=== PATIENT | male | born 1975 | race Native Hawaiian/Other Pacific Islander ===

== ENCOUNTER 2018-12-24 16:29 | Inpatient (IN) | payer OTHER, BC ==
[~2018-12-24] VITALS: Ht 177.8 cm; Wt 113.9 kg
[2018-12-24 17:32] LABS: BASO # 0.1 (0.0-0.2); BASO % 0.5 % (0.0-2.0); EOS # 0.1 (0.0-0.7); EOS % 0.6 % (0-4.0); GRAN # 6.5 (1.4-6.5); GRAN % 69.1 % (42.2-75.2); HEMATOCRIT 44.2 % (42.0-52.0); HEMOGLOBIN 15.1 g/dl (13.5-18.0); LYMPH # 1.9 (1.2-3.4); LYMPH % 20.3 % (20.0-51.0); MEAN CELL VOLUME 82 fl (80.0-100.0); MEAN CORPUSCULAR HEMOGLOBIN 28 pg (27.0-31.0); MEAN CORPUSCULAR HGB CONC 34 g/dl (33.0-37.0); MEAN PLATELET VOLUME 8.8 fl (7.4-10.4); MONO # 0.8 (0.1-0.6); MONO % 8.2 % (1.7-9.3); PLATELET COUNT 318 K/mm3 (130-400); RED BLOOD COUNT 5.37 M/mm3 (4.20-5.60); REDCELL DISTRIBUTION WIDTH-CV 12.1 % (11.5-14.5)
[2018-12-24 17:41] LABS: ALBUMIN 4.1 gm/dL (3.5-5.0); BILIRUBIN,TOTAL 0.6 mg/dL (0.0-1.0); CALCIUM 9.6 mg/dL (8.4-10.2); CREATININE, serum 0.98 mg/dL (0.66-1.25); TOTAL PROTEIN 8.6 gm/dL (6.4-8.2)
[2018-12-24 21:49] VITALS: BP 97/55; PULSE 92; TEMP 98.5
[2018-12-25] VITALS (7 sets, daily range): BP systolic 114–138; BP diastolic 46–71; PULSE 76–88; TEMP 98–99.3
--- NOTE | 2018-12-25 05:37 | NUR ---
Pt slept during the night, states that his pain is much better and he is currently only having mild discomfort at the abcess site. VS have remained stable during the night, spouse stayed in room with Pt overnight.
[2018-12-25 06:55] LABS: BASO # 0.1 (0.0-0.2); BASO % 0.5 % (0.0-2.0); EOS % 0.4 % (0-4.0); GRAN # 7.7 (1.4-6.5); GRAN % 74.9 % (42.2-75.2); HEMATOCRIT 39.6 % (42.0-52.0); HEMOGLOBIN 13.3 g/dl (13.5-18.0); LYMPH # 1.6 (1.2-3.4); LYMPH % 15.4 % (20.0-51.0); MEAN CELL VOLUME 84 fl (80.0-100.0); MEAN CORPUSCULAR HEMOGLOBIN 28 pg (27.0-31.0); MEAN CORPUSCULAR HGB CONC 34 g/dl (33.0-37.0); MONO # 0.8 (0.1-0.6); MONO % 8.1 % (1.7-9.3); PLATELET COUNT 326 K/mm3 (130-400); RED BLOOD COUNT 4.74 M/mm3 (4.20-5.60); REDCELL DISTRIBUTION WIDTH-CV 12.4 % (11.5-14.5)
[2018-12-25 07:10] LABS: ALBUMIN 3.6 gm/dL (3.5-5.0); BILIRUBIN,TOTAL 0.6 mg/dL (0.0-1.0); CALCIUM 8.8 mg/dL (8.4-10.2); CREATININE, serum 0.76 mg/dL (0.66-1.25); POTASSIUM 4.1 mmol/L (3.4-5.0); TOTAL PROTEIN 7.4 gm/dL (6.4-8.2)
--- NOTE | 2018-12-25 08:30 | NUR ---
Patient in bed resting. Spouse at bedside. Alert and oriented x 3. Shift assessment complete. Gauze to perirectal abcess removed, bloody drainage present. Repacked abcess site with gauze and ABD over. IV fluids to left AC infusing via pump. Patient denies pain but states mild discomfort to area. Patient will notify nurse when he feels like he needs something for pain. Denies further needs at this time.
--- NOTE | 2018-12-25 09:43 | NUR ---
SW met with patient and about discharge plans. Patient plans to return home upon discharge. Patient lives independently at home with his . His PCP is Dr. Shukla and [facility] Patient does not use any DME or home health services. Patient does not have a DPOA but he is interested in completing one. AJIT provided. AJIT does not anticipate any discharge needs.
--- NOTE | 2018-12-25 12:28 | NUR ---
First visit from the flying shear operator. Bioinformatics Specialist prayed with patient and family. No other needs right now.
[2018-12-25 14:01] LABS: MUCOUS Present /lpf; PH 6 (5-8); SQUAMOUS EPITHELIAL 0-2 /hpf; URINE APPEARANCE Hazy; URINE BACTERIA None Seen /hpf; URINE BILIRUBIN Negative (NEGATIVE); URINE BLOOD Negative (NEGATIVE); URINE COLOR Yellow; URINE GLUCOSE 3+ (NEGATIVE); URINE KETONE 2+ (NEGATIVE); URINE LEUKOCYTE ESTERASE Negative (NEGATIVE); URINE NITRATE Negative (NEGATIVE); URINE PROTEIN(semi-quant) 1+ (NEGATIVE); URINE RBC 0-2 /hpf; URINE UROBILINOGEN >=4.0 mg/dL (NEGATIVE)
--- NOTE | 2018-12-25 14:34 | NUR ---
Contacted Dr. Banegas, will round on patient this soon. Keep NPO for now.
[2018-12-25 14:37] LABS: COLLECTION METHOD CLEAN CATCH
--- NOTE | 2018-12-25 15:32 | NUR ---
Dr. Banegas in to see patient.
--- NOTE | 2018-12-25 18:26 | NUR ---
Patient in bed resting. remains at bedside. Redressed perirectal abcess with gauze and ABD. Previous dressing with red drainage present. Denies pain at this time. Denies further needs at this time. Will report off to microfilm camera operator.
--- NOTE | 2018-12-25 20:00 | NUR ---
PT HAD SOME RELIEF FROM PAIN PILL GIVEN THIS EVENING. BUT STILL HAS C/O PAIN TO PERIRECTAL ABSESS. ABX AND NS INFUSING. NO OTHER CONSERNS VOICED AT THIS TIME.
--- NOTE | 2018-12-25 22:00 | NUR ---
DRESSING HAD SMALL AMOUNT OF BROWN AND SLIGHT RED TINDED DRAINAGE TO GAUZE APPLIED AROUND SITE. PINROSE DRAIN IN PLACE. GAUZE REMOVED, AREA CLEANED AND NEW GAUZE APPLED AND ABD PAD COVERING DRESSING. PT TOLERATED WELL.
--- NOTE | 2018-12-25 23:40 | NUR ---
DRESSSING WAS CHANGED THIS HS TO PERIRECTAL ABSESS THIS HS. PT WAS NEEDING PAIN MED THIS NOC, THIS NURSE ADMINSITERED MED. NO OTHER ISSUES OR CONSERNS VOICED AT THIS TIME.
--- NOTE | 2018-12-26 02:30 | NUR ---
PT STATED THAT HE WAS HAVING INCREASED PAIN TO PERIRECTAL ABSESS AREA. PT REQUESTED PAIN MEDS IF POSSIBLE. THIS NURSE ASKED PT IF HE WANTED TO TRY SOME TYLENOL DUE TO IT BEING TO EARLY FOR NORCO. PT STATED HE'D TRY IT. STATED THAT WHEN HE WAS LAYING SUPINE THAT HE WAS IN MORE PAIN DUE TO THE PRESSURE BEING APPLIED TO AREA, PT STATED THAT LAYING PRONE WAS MORE COMFORTABLE AND WANTED TO LAY THAT WAY DURING THE NOC TO SEE OF PAIN WOULD LESSEN.
[2018-12-26 04:15] VITALS: BP 106/52; PULSE 78; TEMP 98.2
--- NOTE | 2018-12-26 04:15 | NUR ---
THIS NURSE CAME IN TO CHECK VITALS PT WAS RESTING IN BED WITH EYES CLOSED LAYING IN SUPINE POSITION. STATED THAT THE TYLENOL HAD REALLY HELPED "TAKED THE EDGE OFF" AND THAT HE WAS ABLE TO GET SOME REST. THIS NURSE TOLD PT THAT I WOULD BE COMING BACK INTO PT ROOM SOON TO DO DRESSING CHANGE AND START MORE ABX. PT STATED THAT HE WOULD LIKE THE NORCO PILL AT THAT TIME WELL.
--- NOTE | 2018-12-26 04:45 | NUR ---
PTS PERIRECTAL ABSESS DRESSING CHANGED. GAUZE REMOVED AND AREA CLEANED. RED BLOOD AND AND SLIGHT BROWN COLORING NOTED TO GAUZE. APPLIED NEW GAUZE AND COVERED AREA WITH AN ABD PAD. PINROSE DRAIN INTACT. PT TOLERATED WELL.
--- NOTE | 2018-12-26 05:00 | NUR ---
PT WAS RESTING WITH EYES CLOSED WHEN THIS NURSE ENTERED ROOM TO DO DRESSING CHANGE. PT EASILY ARROUSABLE. PT WAS ADMINISTERED PAIN MED PER REQUEST. IV ABX INFUSING ALONG WIHT NS, NO ISSUES NOTED WITH IV. PT HAS BEEN PLEASANT AND COOPERATIVE WITH CARES.
[2018-12-26 08:00] VITALS: BP 125/70; PULSE 73; TEMP 98
[2018-12-26 09:00] LABS: BASO # 0.1 (0.0-0.2); BASO % 0.7 % (0.0-2.0); EOS # 0.1 (0.0-0.7); EOS % 1.9 % (0-4.0); GRAN # 4.4 (1.4-6.5); GRAN % 60.7 % (42.2-75.2); HEMATOCRIT 39.2 % (42.0-52.0); HEMOGLOBIN 13.1 g/dl (13.5-18.0); LYMPH # 1.9 (1.2-3.4); LYMPH % 26.2 % (20.0-51.0); MEAN CELL VOLUME 85 fl (80.0-100.0); MEAN CORPUSCULAR HEMOGLOBIN 29 pg (27.0-31.0); MEAN CORPUSCULAR HGB CONC 33 g/dl (33.0-37.0); MEAN PLATELET VOLUME 8.7 fl (7.4-10.4); MONO # 0.7 (0.1-0.6); MONO % 9.5 % (1.7-9.3); PLATELET COUNT 311 K/mm3 (130-400); REDCELL DISTRIBUTION WIDTH-CV 12.6 % (11.5-14.5)
--- NOTE | 2018-12-26 09:00 | NUR ---
Patient in bed resting, spouse at bedside. Alert and oriented x3. Shift assessment complte. student finance advisor performed dressing change to perirectal site. IV fluids and antibiotics infusing to left AC via pump. States pain 7/10 to perirectal area, medications adiministered per orders by nursing staffing coordinator. Patient waiting for breakfast tray. Denies further needs at this time.
[2018-12-26 09:10] LABS: CALCIUM 8.6 mg/dL (8.4-10.2); CREATININE, serum 0.8 mg/dL (0.66-1.25); POTASSIUM 3.9 mmol/L (3.4-5.0)
--- NOTE | 2018-12-26 10:11 | NUR ---
Initiated secondary IV site. X1 attempt to left wrist. Patient tolerated procedure well
[2018-12-26 13:32] VITALS: BP 126/59; PULSE 75; TEMP 98.3
--- NOTE | 2018-12-26 13:43 | NUR ---
Pt resting in bed with at bedside. Pt is A&Ox3 having complaints of pain in incions site, site reamins clean,dry and intact with sita drain moderate amount of bloody drainage noted with dressing change. Pt receving insulin at breakfast and lunch pt and educated on how to give insulin. Pt has been having pain control with norco and tylenol.
[2018-12-26 16:33] VITALS: BP 132/70; PULSE 81; TEMP 98.4
--- NOTE | 2018-12-26 19:37 | NUR ---
Patient in bed resting. Spouse remains at bedside. States he was able to have a BM this afternoon. IV antibiotics infusing to Left AC per orders. Denies further pain or further needs at this time. reported off to overnight caregiver.
--- NOTE | 2018-12-26 20:00 | NUR ---
Shift assessment complete. at bedside. Romero drain intact, rectal dressing changed (gauze, abd). Patient c/o 4/10 pain in rectal area, prn pain medication given. Will continue to assess.
[2018-12-26 20:37] VITALS: BP 127/64; PULSE 77; TEMP 98.4
[2018-12-26 23:15] VITALS: BP 122/62; PULSE 66; TEMP 98.2
--- NOTE | 2018-12-27 02:00 | NUR ---
Patient in bed, son at bedside. Gauze changed on perirectal abcess site per pt request. Patient denies pain, but would like prn motrin to "get ahead of the pain." Prn motrin given with crackers, will reassess.
[2018-12-27 04:13] VITALS: BP 139/75; PULSE 68; TEMP 97.8
[2018-12-27 07:13] LABS: BASO % 0.6 % (0.0-2.0); EOS # 0.2 (0.0-0.7); GRAN # 4.3 (1.4-6.5); GRAN % 61.6 % (42.2-75.2); HEMATOCRIT 38.2 % (42.0-52.0); HEMOGLOBIN 12.5 g/dl (13.5-18.0); LYMPH # 1.7 (1.2-3.4); MEAN CELL VOLUME 86 fl (80.0-100.0); MEAN CORPUSCULAR HEMOGLOBIN 28 pg (27.0-31.0); MEAN CORPUSCULAR HGB CONC 33 g/dl (33.0-37.0); MEAN PLATELET VOLUME 8.5 fl (7.4-10.4); MONO # 0.7 (0.1-0.6); MONO % 9.5 % (1.7-9.3); PLATELET COUNT 292 K/mm3 (130-400); RED BLOOD COUNT 4.45 M/mm3 (4.20-5.60); REDCELL DISTRIBUTION WIDTH-CV 12.8 % (11.5-14.5)
[2018-12-27 07:26] LABS: CALCIUM 8.5 mg/dL (8.4-10.2); CREATININE, serum 1.08 mg/dL (0.66-1.25); POTASSIUM 4.1 mmol/L (3.4-5.0)
[2018-12-27 07:39] VITALS: BP 153/81; PULSE 81; TEMP 97.2
--- NOTE | 2018-12-27 08:40 | NUR ---
Patient in bed resting. at bedside. Alert and oriented x 3. Shift assessment complete. Perirectal abcess with gauze and abd pad changed by student nurse, sita drain intact. IV fluids infusing via pump to left AC. Denies pain at this time. Denies further needs at this time.
--- NOTE | 2018-12-27 10:27 | NUR ---
Pt is resting in bed with family at bedside. No complaints of SOA breathing unlabored. IV infusing at 125mL/hr of normal saline IV site remains clean,dry and intact no redness or swelling. Pt ordering breakfast and had a blood glucose of 217. Pt had a BM this morning and took out dressing due to them being soild dressing replaced with some gauze and abd pad sita drain remains in place with no redness or swelling around site. Pt wanting to do a wipe down. Call light within reach, bed in lowest postion 2/4 siderails up and pt perfers his own slippers to hospital non-skid socks.
[2018-12-27 12:26] VITALS: BP 147/72; PULSE 77; TEMP 97.9
--- NOTE | 2018-12-27 12:43 | NUR ---
Patient up ambulating in [place] with spouse, steady gait
--- NOTE | 2018-12-27 13:15 | NUR ---
Dressing changed before patinet walking the [place] with . Small amount of serosanguinous drainage sita drain intact with sutures. Dressing changed with two 4x4 and abd pad over. Tolerating walking the halls well.
[2018-12-27] MEDS ORDERED: FREESTYLE PREC1 EAC5 MC (14:10)
[2018-12-27] MEDS ORDERED: GLUCOSE TEST ST1 DEV MC (14:10)
[2018-12-27] MEDS ORDERED: GLUCOPHAGE850 MG/TAB PO (14:10)
[2018-12-27] MEDS ORDERED: LANCETS MC (14:10)
--- NOTE | 2018-12-27 15:41 | NUR ---
Discharge education provided, Patient and spouse educated on dressing changes. Provided gauze and ABD to take home. Educated on signs and symptoms of infection and when to call providers. Patient educated on how to check blood sugar, patient demonstrated back ability to perform accucheck. Patient verbalized understanding of discharge instructions. States pain 4/10 to perirectal area would like to take motrin before leaving. Gave medications per orders. Denies further needs. Ambulated out with surgical staff and spouse.
== END 2018-12-27 15:45 | disposition home or self-care (01) | DRG 264 ==
LOC: COL.ER 16:29 → SURG 18:43
PROVIDERS: Emergency Medicine; Nurse Practitioner; Physician Assistant; ADMIT Surgery
PROC: 0J9930Z Drainage of Buttock Subcutaneous Tissue and Fascia with Drainage Device, Percutaneous Approach (ICD-10-PCS; 2018-12-24)
PROC: 0JB90ZZ Excision of Buttock Subcutaneous Tissue and Fascia, Open Approach (ICD-10-PCS; principal; 2018-12-24 19:00)
DX: I96 Gangrene, not elsewhere classified (principal); K61.2 Anorectal abscess; E11.52 Type 2 diabetes mellitus with diabetic peripheral angiopathy with gangrene; Z23 Encounter for immunization; E11.65 Type 2 diabetes mellitus with hyperglycemia; N49.3 Fournier gangrene
CPT/HCPCS: 99223; 99231-AI; J1650; J1815; J1885; J2405; J2543; J2704; J3010; J3370; J7030; J7040; J7050; Q9967

== ENCOUNTER → 2019-01-10 | Outpatient (CLI) | payer BC, OTHER ==
[~2019-01-10] MED LIST: FREESTYLE PREC1 EAC5 MC; GLUCOPHAGE850 MG/TAB PO; GLUCOSE TEST ST1 DEV MC; LANCETS MC
== END ==
LOC: SUN.DIA 11:40
DX: E11.40 Type 2 diabetes mellitus with diabetic neuropathy, unspecified (principal); I10 Essential (primary) hypertension; E66.9 Obesity, unspecified
CPT/HCPCS: G0108

== ENCOUNTER → 2019-01-22 | Outpatient (CLI) | payer BC, OTHER | LOC: SUN.DIA 15:28 | DX: E11.40 Type 2 diabetes mellitus with diabetic neuropathy, unspecified (principal); I10 Essential (primary) hypertension; E66.9 Obesity, unspecified | CPT/HCPCS: G0109 ==

== ENCOUNTER → 2019-01-29 | Outpatient (CLI) | payer BC, OTHER | LOC: SUN.DIA 10:05 | DX: E11.40 Type 2 diabetes mellitus with diabetic neuropathy, unspecified (principal); I10 Essential (primary) hypertension; E66.9 Obesity, unspecified | CPT/HCPCS: G0108; G0109 ==

== ENCOUNTER → 2019-02-05 | Outpatient (CLI) | payer BC, OTHER | LOC: SUN.DIA 15:23 | DX: E11.40 Type 2 diabetes mellitus with diabetic neuropathy, unspecified (principal); I10 Essential (primary) hypertension; E66.9 Obesity, unspecified | CPT/HCPCS: G0109 ==

== ENCOUNTER → 2019-03-12 | Outpatient (CLI) | payer BC, OTHER | LOC: SUN.DIA 02-12 14:55 | DX: E11.40 Type 2 diabetes mellitus with diabetic neuropathy, unspecified (principal); I10 Essential (primary) hypertension; E66.9 Obesity, unspecified | CPT/HCPCS: G0108 ==

== ENCOUNTER → 2019-04-16 | Outpatient (CLI) | payer BC, OTHER | LOC: SUN.DIA 11:09 → DIA.ED 18:00 → SUN.DIA 18:00 | DX: E11.40 Type 2 diabetes mellitus with diabetic neuropathy, unspecified (principal); I10 Essential (primary) hypertension; E66.9 Obesity, unspecified | CPT/HCPCS: G0109 ==